=== PATIENT | female | born 1980 | race Caucasian/White ===

== ENCOUNTER → 2016-10-06 | Outpatient (CLI) | payer OTHER ==
[~2016-10-06] VITALS: Ht 168.9 cm; Wt 67.0 kg
[~2016-10-06] MED LIST: IRON160 M1 PO; PRENATAL TABLE1 EAC3 PO
[2016-10-06 10:17] VITALS: BP 111/61
== END | disposition home or self-care (01) ==
LOC: IVINF 10:00
DX: O36.0990 Maternal care for other rhesus isoimmunization, unspecified trimester, not applicable or unspecified (principal); Z3A.00 Weeks of gestation of pregnancy not specified
CPT/HCPCS: 96372; J2790

== ENCOUNTER 2016-12-14 09:43 | Inpatient (IN) | payer OTHER ==
[~2016-12-14] VITALS: Ht 167.6 cm; Wt 77.3 kg
[2016-12-14] VITALS (32 sets, daily range): BP systolic 73–137; BP diastolic 50–85
[2016-12-14 10:36] LABS: EOSINOPHIL (%) 1.6 % (0-5); EOSINOPHIL COUNT 0.1 K/uL (0-0.3); HEMATOCRIT 34.3 % (36.0-46.0); IMMATURE GRANULOCYTE (%) 0.3 % (0.0-0.7); INSTRUMENT ABS NEUTROPHIL CT 5.1 K/uL; LYMPHOCYTE COUNT 2.7 K/uL (1.0-2.8); MCH 31.2 PG (29.0-34.0); MCHC 33.5 G/DL (30.0-36.0); MEAN PLAT.VOLUME 9.8 uM^3 (9.5-12.4); MONOCYTE (%) 8.4 % (3-12); MONOCYTE COUNT 0.7 K/uL (0-0.8); NEUTROPHIL (%) 58.1 % (45-76); NEUTROPHIL COUNT 5.1 K/uL (1.8-6.4); PLATELET COUNT 282 K/uL (156-360); RBC DIS.WIDTH-CV 13.3 % (11.8-14.6); RBC DIS.WIDTH-SD 45.4 % (39-53); RED BLOOD COUNT 3.69 M/uL (3.80-5.20); WHITE BLOOD COUNT 8.7 K/uL (4.1-10.2)
[2016-12-15 06:08] LABS: EOSINOPHIL (%) 0.7 % (0-5); EOSINOPHIL COUNT 0.1 K/uL (0-0.3); HEMATOCRIT 30.5 % (36.0-46.0); IMMATURE GRANULOCYTE (%) 0.5 % (0.0-0.7); IMMATURE GRANULOCYTE COUNT 0.1 K/uL; INSTRUMENT ABS NEUTROPHIL CT 7.3 K/uL; LYMPHOCYTE COUNT 2.4 K/uL (1.0-2.8); MCHC 33.4 G/DL (30.0-36.0); MCV 92.7 FL (83-99); MEAN PLAT.VOLUME 9.7 uM^3 (9.5-12.4); MONOCYTE (%) 9.4 % (3-12); NEUTROPHIL (%) 66.9 % (45-76); NEUTROPHIL COUNT 7.3 K/uL (1.8-6.4); PLATELET COUNT 244 K/uL (156-360); RBC DIS.WIDTH-CV 13.2 % (11.8-14.6); RBC DIS.WIDTH-SD 44.1 % (39-53); RED BLOOD COUNT 3.29 M/uL (3.80-5.20); WHITE BLOOD COUNT 10.9 K/uL (4.1-10.2)
[2016-12-15 22:57] VITALS: BP 116/66
[2016-12-16 07:15] VITALS: BP 128/86
[2016-12-16 15:31] VITALS: BP 130/76
== END 2016-12-16 16:25 | disposition home or self-care (01) | DRG 775 ==
LOC: LDRP-OP 09:43 → 2WEST 09:44 → LDRP-OP 01-27 12:54
PROVIDERS: Midwife
PROC: 10E0XZZ Delivery of Products of Conception, External Approach (ICD-10-PCS; principal; 2016-12-14)
PROC: 00HU33Z Insertion of Infusion Device into Spinal Canal, Percutaneous Approach (ICD-10-PCS; 2016-12-14)
PROC: 3E0S3CZ (ICD-10-PCS; 2016-12-14)
DX: O99.824 Streptococcus B carrier state complicating childbirth (principal); O69.81X0 Labor and delivery complicated by cord around neck, without compression, not applicable or unspecified; O99.02 Anemia complicating childbirth; D64.89 Other specified anemias; Z3A.38 38 weeks gestation of pregnancy; Z37.0 Single live birth; O75.89 Other specified complications of labor and delivery; O09.523 Supervision of elderly multigravida, third trimester; R55 Syncope and collapse
CPT/HCPCS: 83030; 85025; 86870; 86900; 86901; 86905; C1755; J2540; J2790; J3010; J7120

== ENCOUNTER → 2017-11-08 | Outpatient (CLI) | payer BC ==
[~2017-11-08] VITALS: Ht 167.6 cm; Wt 72.3 kg
[~2017-11-08] MED LIST changes: +RHOGAM ULTR1500 UNIT IV
[2017-11-08 13:57] VITALS: BP 108/64
== END | disposition home or self-care (01) ==
LOC: IVINF 13:30
DX: O09.899 Supervision of other high risk pregnancies, unspecified trimester (principal); Z3A.00 Weeks of gestation of pregnancy not specified; Z67.91 Unspecified blood type, Rh negative
CPT/HCPCS: 96372; J2790

== ENCOUNTER 2018-01-22 08:11 | Inpatient (IN) | payer BC ==
[~2018-01-22] VITALS: Ht 167.6 cm; Wt 77.7 kg
[2018-01-22] VITALS (30 sets, daily range): BP systolic 108–150; BP diastolic 56–95
[2018-01-22] MEDS ORDERED: IRON325 M1 PO (08:49)
[2018-01-22 09:59] LABS: BASOPHIL (%) 0.4 % (0-1); EOSINOPHIL COUNT 0.1 K/uL (0-0.3); HEMATOCRIT 30.9 % (36.0-46.0); HEMOGLOBIN 10.3 G/DL (11.9-15.5); IMMATURE GRANULOCYTE (%) 0.7 % (0.0-0.7); LYMPHOCYTE (%) 24.5 % (15-42); LYMPHOCYTE COUNT 2.6 K/uL (1.0-2.8); MCH 30.2 PG (29.0-34.0); MCHC 33.3 G/DL (30.0-36.0); MCV 90.6 FL (83-99); MONOCYTE (%) 8.6 % (3-12); MONOCYTE COUNT 0.9 K/uL (0-0.8); NEUTROPHIL (%) 64.8 % (45-76); NEUTROPHIL COUNT 6.8 K/uL (1.8-6.4); PLATELET COUNT 314 K/uL (156-360); RBC DIS.WIDTH-CV 13.7 % (11.8-14.6); RBC DIS.WIDTH-SD 44.7 % (39-53); RED BLOOD COUNT 3.41 M/uL (3.80-5.20); WHITE BLOOD COUNT 10.5 K/uL (4.1-10.2)
[2018-01-22 10:52] LABS: AMPHETAMINE NEGATIVE (500 ng/mL); BARBITURATES NEGATIVE (200 ng/mL); BENZODIAZEPINES NEGATIVE (150 ng/mL); BUPRENORPHINE NEGATIVE (10 ng/mL); COCAINE NEGATIVE (150 ng/mL); METHADONE NEGATIVE (200 ng/mL); METHAMPHETAMINE NEGATIVE (500 ng/mL); OPIATES (MORPHINE) NEGATIVE (100 ng/mL); OXYCODONE NEGATIVE (100 ng/mL); PHENCYCLIDINE NEGATIVE (25 ng/mL); PROPOXYPHENE NEGATIVE (300 ng/mL); THC CANNABINOIDS NEGATIVE (50 ng/mL); TRICYCLIC ANTIDEPRESSANTS NEGATIVE (300 ng/mL)
[2018-01-23 00:02] VITALS: BP 122/71
[2018-01-23 06:26] LABS: BASOPHIL (%) 0.2 % (0-1); EOSINOPHIL (%) 0.7 % (0-5); EOSINOPHIL COUNT 0.1 K/uL (0-0.3); HEMATOCRIT 27.7 % (36.0-46.0); IMMATURE GRANULOCYTE (%) 0.3 % (0.0-0.7); LYMPHOCYTE (%) 19.7 % (15-42); LYMPHOCYTE COUNT 2.7 K/uL (1.0-2.8); MCH 29.7 PG (29.0-34.0); MCHC 32.5 G/DL (30.0-36.0); MCV 91.4 FL (83-99); MONOCYTE (%) 8.9 % (3-12); MONOCYTE COUNT 1.2 K/uL (0-0.8); NEUTROPHIL (%) 70.2 % (45-76); NEUTROPHIL COUNT 9.6 K/uL (1.8-6.4); PLATELET COUNT 280 K/uL (156-360); RBC DIS.WIDTH-CV 13.8 % (11.8-14.6); RBC DIS.WIDTH-SD 45.5 % (39-53); RED BLOOD COUNT 3.03 M/uL (3.80-5.20); WHITE BLOOD COUNT 13.7 K/uL (4.1-10.2)
[2018-01-23 07:21] VITALS: BP 121/70
[2018-01-23 14:39] VITALS: BP 118/68
[2018-01-23 23:36] VITALS: BP 122/67
[2018-01-24 08:13] VITALS: BP 142/86
[2018-01-24 09:46] VITALS: BP 122/77
[2018-01-24] MEDS ORDERED: IBUPROFEN800 MG PO (11:41)
[2018-01-24] MEDS ORDERED: CAMILA0.35 MG PO (11:42)
== END 2018-01-24 12:22 | disposition home or self-care (01) | DRG 775 ==
LOC: LDRP-OP 08:11 → 2WEST 08:12 → LDRP-OP 02-28 16:34
PROVIDERS: Advanced Practice Midwife
DX: O99.334 Smoking (tobacco) complicating childbirth (principal); F17.200 Nicotine dependence, unspecified, uncomplicated; G97.1 Other reaction to spinal and lumbar puncture; Y84.4 Aspiration of fluid as the cause of abnormal reaction of the patient, or of later complication, without mention of misadventure at the time of the procedure; Y92.234 Operating room of hospital as the place of occurrence of the external cause; Z3A.39 39 weeks gestation of pregnancy; Z37.0 Single live birth; O90.81 Anemia of the puerperium; D62 Acute posthemorrhagic anemia
CPT/HCPCS: 83030; 85025; 86850; 86870; 86900; 86901; C1755; J2790; J3010; J7120

== ENCOUNTER → 2018-01-26 | Outpatient (CLI) | payer BC ==
[~2018-01-26] VITALS: Ht 167.6 cm; Wt 72.0 kg
[~2018-01-26] MED LIST changes: +CAMILA0.35 MG PO; +IBUPROFEN800 MG PO; +IRON325 M1 PO
[2018-01-26 13:10] VITALS: BP 136/81
== END | disposition home or self-care (01) ==
LOC: EME 11:31 → AMB 11:31 → EDSTATUS 13:15
PROC: 3E0S3GC Introduction of Other Therapeutic Substance into Epidural Space, Percutaneous Approach (ICD-10-PCS; principal; 2018-01-26)
DX: O89.4 Spinal and epidural anesthesia-induced headache during the puerperium (principal)
CPT/HCPCS: 99281; 99284

== ENCOUNTER 2018-03-05 12:03 | Inpatient (IN) | payer BC ==
[~2018-03-05] VITALS: Ht 167.6 cm; Wt 66.9 kg
[2018-03-05 12:44] LABS: ALBUMIN 4.2 g/dL (3.2-4.8); CHLORIDE 105 mEq/L (99-109); POTASSIUM 4.4 mEq/L (3.7-5.4); SODIUM 140 mEq/L (136-147)
[2018-03-05 12:47] LABS: GLUCOSE 179 mg/dL (70-99)
[2018-03-05 12:49] LABS: TOTAL BILIRUBIN 0.3 mg/dL (0.0-1.0)
[2018-03-05 12:50] LABS: ALKALINE PHOSPHATASE 81 IU/L (3-129); CREATININE 0.9 mg/dL (0.6-1.3); GFR ESTIMATE (CALCULATED) > 59 mL/min/
[2018-03-05 12:50] LABS: BASOPHIL (%) 0.4 % (0-1); BASOPHIL COUNT 0.1 K/uL (0-0.1); EOSINOPHIL (%) 0.9 % (0-5); EOSINOPHIL COUNT 0.1 K/uL (0-0.3); HEMATOCRIT 37.8 % (36.0-46.0); HEMOGLOBIN 12.7 G/DL (11.9-15.5); IMMATURE GRANULOCYTE (%) 0.3 % (0.0-0.7); LYMPHOCYTE COUNT 2.2 K/uL (1.0-2.8); MCH 30.1 PG (29.0-34.0); MCHC 33.6 G/DL (30.0-36.0); MCV 89.6 FL (83-99); MONOCYTE (%) 7.2 % (3-12); MONOCYTE COUNT 0.9 K/uL (0-0.8); NEUTROPHIL (%) 74.2 % (45-76); NEUTROPHIL COUNT 9.6 K/uL (1.8-6.4); PLATELET COUNT 346 K/uL (156-360); RBC DIS.WIDTH-CV 14.4 % (11.8-14.6); RBC DIS.WIDTH-SD 47.5 % (39-53); RED BLOOD COUNT 4.22 M/uL (3.80-5.20); WHITE BLOOD COUNT 12.9 K/uL (4.1-10.2)
[2018-03-05 12:51] LABS: UREA NITROGEN (BUN) 8 mg/dL (9-23)
[2018-03-05 12:52] LABS: AST (GOT) 58 IU/L (2-34)
[2018-03-05 12:53] LABS: ALT (GPT) 46 IU/L (3-49); TROP-I INTERPRETATION NEGATIVE; TROPONIN-I < 0.01 ng/mL (0.0-0.30)
[2018-03-05 12:59] LABS: QUANTITATIVE HCG < 4.0 MIU/ML
[2018-03-05 13:27] LABS: HDL CHOLESTEROL 67 MG/DL (Desirable>=50); LDL CHOLESTEROL 124 mg/dL (Desirable<100); NON-HDL CHOLESTEROL 149 mg/dL (Desirable<160); TOTAL CHOLESTEROL 216 mg/dL (Desirable<200); TRIGLYCERIDES 124 MG/DL (Normal: <150)
[2018-03-05 14:05] LABS: TOTAL PROTEIN 7.2 G/DL (6.4-8.3)
[2018-03-05 14:05] LABS: HEMOGLOBIN A1c (GLYCOHEMOGLOB) 5.1 % (Below 5.7)
[2018-03-05] MEDS ORDERED: ADVIL200 MG PO (14:31)
[2018-03-05] MEDS ORDERED: CAMILA0.35 MG PO (14:31)
[2018-03-05] MEDS ORDERED: EXCEDRIN MIGRA1 EAC3 PO (14:32)
[2018-03-05 14:59] LABS: APPEARANCE SL.HAZY ((CLEAR)); BILIRUBIN NEGATIVE; BLOOD NEGATIVE; COLOR YELLOW ((YELLOW)); GLUCOSE (STRIP) NEGATIVE; KETONES 5; LEUKOCYTES NEGATIVE; NITRITE NEGATIVE; PROTEIN (STRIP) NEGATIVE; SPECIFIC GRAVITY 1.043 (1.000-1.030); UROBILINOGEN 0.2 MG/DL (0.2-1.0)
[2018-03-05 15:07] LABS: BACTERIA NONE SEEN /HPF; EPITHELIAL CELLS 2+ /HPF; HYALINE CASTS 0-5 /LPF; MUCUS NONE SEEN /LPF; RED BLOOD CELLS 0-5 /HPF (0-5); UCUL ADDED? NO; WHITE BLOOD CELLS 0-5 /HPF (0-5)
[2018-03-05 19:38] VITALS: BP 148/72
[2018-03-05 23:47] VITALS: BP 119/72
[2018-03-06 03:41] VITALS: BP 108/63
[2018-03-06 07:53] VITALS: BP 119/80
[2018-03-06 11:51] VITALS: BP 121/67
[2018-03-06 15:56] VITALS: BP 140/74
[2018-03-06 23:29] VITALS: BP 133/76
[2018-03-07 05:40] LABS: INTER. NORMALIZED RATIO 1.1
[2018-03-07 05:42] LABS: PTT 25.7 SEC (25-37)
[2018-03-07 07:13] VITALS: BP 115/61
[2018-03-07 15:11] VITALS: BP 115/83
[2018-03-08 00:06] VITALS: BP 111/65
[2018-03-08 07:40] VITALS: BP 102/62
[2018-03-09 03:48] LABS: PROTEIN C FUNCTIONAL ACTIVITY+ 70 % (70-180)
[2018-03-09 14:49] LABS: Protein S, Free 74 % normal (50-147)
[2018-03-12 13:06] LABS: ACTIVATED PROTEIN C RESIST+ 4.9 ratio (>=2.1); DRVVT Mixing Study Interp Not Indicated (()); FACTOR VIII ACTIVITY+ 125 % (50-180); PROTEIN C FUNCTIONAL ACTIVITY+ 86 % (70-180); PTT-LA 35 sec (<=40); Protein S, Free 72 % normal (50-147); dRVVT Screen 37 sec (<=45)
[2018-03-13 14:15] LABS: ANTITHROMBIN III ACTIVITY+ 95 % activi (80-120)
== END 2018-03-08 15:45 | disposition left against medical advice (07) | DRG 776 ==
LOC: EME → EDBD 12:03 → EME 12:03 → EDOF 16:14 → 5SOUTH 16:14 → ENRESERV 16:17 → 5SOUTH 19:24
PROVIDERS: Emergency Medicine; Family Medicine Sports Medicine; Specialist
DX: O99.43 Diseases of the circulatory system complicating the puerperium (principal); I63.412 Cerebral infarction due to embolism of left middle cerebral artery; R47.81 Slurred speech; R29.810 Facial weakness; R20.0 Anesthesia of skin; R47.01 Aphasia; I25.3 Aneurysm of heart; Q21.1 Atrial septal defect; O99.13 Other diseases of the blood and blood-forming organs and certain disorders involving the immune mechanism complicating the puerperium; D68.59 Other primary thrombophilia; O99.345 Other mental disorders complicating the puerperium; F32.9 Major depressive disorder, single episode, unspecified; F41.9 Anxiety disorder, unspecified; O99.285 Endocrine, nutritional and metabolic diseases complicating the puerperium; E78.00 Pure hypercholesterolemia, unspecified; O99.335 Smoking (tobacco) complicating the puerperium; F17.210 Nicotine dependence, cigarettes, uncomplicated; Z71.6 Tobacco abuse counseling; Z85.828 Personal history of other malignant neoplasm of skin
CPT/HCPCS: 70450; 70496; 70544; 70551; 72198; 74174; 80053; 80061; 81003; 81240 90; 83036; 83090 90; 84484; 84702; 85025; 85240 90; 85300 90; 85303 90; 85305 90; 85306 90; 85307 90; 85610; 85613 90; 85730; 85730 90; 86146 90; 86147 90; 93005; 93306; 93970; 93976; 99281; 99284; J1650